=== PATIENT | female | born 1940 | race Caucasian/White ===

== ENCOUNTER 2022-08-16 23:42 | Emergency (ER) | payer MEDICARE, OTHER, SELFPAY ==
[2022-08-16 23:55] VITALS: BP 155/73; PULSE 81; RESP 18; TEMP 36.1; O2SAT 97; BMI 25.1
[2022-08-17] VITALS: BP 156/75; PULSE 78; RESP 18; O2SAT 97
[2022-08-17 00:30] VITALS: BP 155/76; PULSE 82; RESP 18; O2SAT 98
--- NOTE | 2022-08-17 00:50 | ED_ITS ---
HPI - Arrhythmia/Palpitations General Chief Complaint: Arrhythmia/Palpitations Stated Complaint: Chest Pain Time Seen by Provider: 08/17/22 00:40 History of Present Illness HPI narrative: 81-year-old woman presenting to the emergency department with her with concern of rapid heart rate. She had been resting in bed to go to sleep when her heart started racing. She had been on her left side which is her customary sleeping position. She tried other positions and this could not get comfortable. Went to the bathroom it was still racing ultimately called for help. She was never really short of breath she did not have any abdominal pain or nausea. No diaphoresis. No chest pain. Things seemed to settle down at this point. About 18 months ago had episodes of blacking out and presented to the ER/hospital at which point was hospitalized for 3 days. She was noted to have an unspecified what sounds like tachyarrhythmia. Cardiac angiography was done and was stented in an artery that was 70% occluded. She denies a history of heart failure or history of myocardial infarction. Was on what sounds like some sort of a rate control limited medication for a time. Follow up with EP/Cardiology in ultimately was discontinued from this medication. Has been well since. When she had this initial episode 18 months ago she thought maybe was related to a probable with anesthesia. She just had a procedure done requiring both general and of block on the left arm. She feels that that block may have been related somehow. Is in the area for a believe grandson's wedding. They were at rehearsal dinner this last evening Ms. Rincon does not smoke or drink alcohol. Past medical presented by patient Status post hysterectomy, bladder sling, cholecystectomy, bilateral cataract extraction lens reimplantation, esophageal dilatation times for, lower dental implants, cardiac stenting, hiatal hernia with reflux repair-repositioning stomach, lumbar diskectomy at L4-5, ablation of right lower back nerve root, partial corneal transplant, thumb reconstruction, spinal cord stimulator implant History of torn cartilage in the left knee, right foot neuroma, cardiovascular disease/coronary artery disease history of Clostridium difficile, osteoarthritis, osteoporosis Related Data Home Medications Medication Instructions Recorded Confirmed Tylenol Arthritis 08/17/22 aspirin 81 mg tablet,delayed 81 mg PO DAILY 08/17/22 08/17/22 release (Adult Aspirin Regimen) estradiol 0.5 mg tablet 0.5 mg PO DAILY 08/17/22 08/17/22 levothyroxine 25 mcg tablet 25 mcg PO DAILY 08/17/22 08/17/22 pantoprazole 40 mg tablet,delayed 40 mg PO BID 08/17/22 08/17/22 release rosuvastatin 20 mg tablet (Crestor) 20 mg PO DAILY 08/17/22 08/17/22 tramadol 50 mg tablet 50 mg PO Q4-6H PRN 08/17/22 08/17/22 Allergies Allergy/AdvReac Type Severity Reaction Status Date / Time No Known Drug Allergies Allergy Verified 08/17/22 00:00 [facility] Social History Smoking Status: Never smoker How often do you have a drink containing alcohol: never AUDIT-C Alcohol total score: 0 Non-prescribed substance use: denies use Exam Narrative: Exam Narrative: Very pleasant. NAD. Quite alert. Cranial nerves 2-12 intact On monitor occasional PVC, rare. Is breathing easily. Lungs are clear. Intermittent small cough. No stridor Cardiovascular regular rate and rhythm. No murmur rub or gallop is identified. No JVD. Neck is supple. Abdomen is soft nontender Oropharynx with upper denture plate. Moving all extremities without difficulty. No extremity edema. Const: Vital Signs, click to edit/add: Vital Signs - 24 hr 08/16/22 23:55 08/17/22 00:00 08/17/22 00:30 Temperature 97.0 F L Pulse Rate [Apical ] 81 78 82 Respiratory Rate 18 18 18 Blood Pressure [Le ft Upper Arm] 155/73 H 156/75 H 155/76 H Pulse Oximetry 97 97 98 Oxygen Delivery Me thod Room Air 08/17/22 01:00 08/17/22 01:30 08/17/22 02:00 Temperature Pulse Rate [Apical ] 72 78 75 Respiratory Rate 18 18 18 Blood Pressure [Le ft Upper Arm] 136/73 148/72 H 147/63 H Pulse Oximetry 99 99 98 Oxygen Delivery Me thod Documenting provider has reviewed patient's vital signs: yes Course Course Hospital Course: Initiated on normal saline IV. Monitored on policy change clerks supervisor. Reevaluation(s) Reevaluation #1: Well during time in the emergency depart without further event. Vital Signs Vital signs: Initial Vital Signs Temperature 97.0 F L 08/16/22 23:55 Temperature Source Temporal Artery Scan 08/16/22 23:55 Pulse Rate 81 09/23/22 23:55 Respiratory Rate 18 08/16/22 23:55 Blood Pressure 155/73 H 08/16/22 23:55 Blood Pressure Mean 100 08/16/22 23:55 Blood Pressure Position Supine 08/16/22 23:55 Pulse Oximetry 97 08/16/22 23:55 Oxygen Delivery Method 08/16/22 23:55 Vital Signs Temperature 97.0 F L 08/16/22 23:55 Pulse Rate 81 08/16/22 23:55 Respiratory Rate 18 08/16/22 23:55 Blood Pressure 155/73 H 08/16/22 23:55 Pulse Oximetry 97 08/16/22 23:55 Oxygen Delivery Method 08/16/22 23:55 Temperature 97.0 F L 08/16/22 23:55 Pulse Rate 75 08/17/22 02:00 Respiratory Rate 18 08/17/22 02:00 Blood Pressure 147/63 H 08/17/22 02:00 Pulse Oximetry 98 08/17/22 02:00 Oxygen Delivery Method 08/16/22 23:55 MDM - Arrhythmia/Palpitations MDM Narrative Medical decision making narrative: Given other significant recent history of think it is reasonable to monitor for a time check labs. Hydrate. Medical Records Attestation: I reviewed the patient's medical records. Lab Data Attestation: I reviewed the patient's lab results. Labs: Lab Results 08/17/22 08/17/22 08/17/22 Range/Units 00:59 00:59 00:59 WBC 8.87 (4.50-11.00) K/uL RBC 3.82 L (4.00-5.20) m/uL Hgb 12.5 (12.0-16.0) gm/dL Hct 37.0 (33.0-51.0) % MCV 97 (80-100) fL MCH 33 (26-34) pg MCHC 34 (32-36) gm/dL RDW Coeff of [place] 13.2 (11.5-15.5) % Plt Count 222 (140-440) K/uL Neut % (Auto) 53.2 (42.0-72.0) % Lymph % (Auto) 33.3 (20-44) % [place] % (Auto) 7.9 (0.0-11.0) % Eos % (Auto) 5.1 (0.0-7.0) % Baso % (Auto) 0.3 (0.0-3.0) % Neut # (Auto) 4.72 (1.7-7.0) K/uL Lymph # (Auto) 2.95 H (0.90-2.90) K/uL [place] # (Auto) 0.70 (0.00-0.90) K/UL Eos # (Auto) 0.45 (0.00-0.50) K/uL Baso # (Auto) 0.03 (0.00-0.30) K/uL Abs Immat Gran (auto) 0.02 (0.00-0.30) K/uL Sodium 138 (135-149) mmol/L Potassium 4.1 (3.6-5.1) mmol/L Chloride 107 (96-114) mmol/L Carbon Dioxide 22 (20-32) mmol/L BUN 18 (7-30) mg/dL Creatinine 0.8 (0.5-1.5) mg/dL Estimated Creat Clear 33.86 Estimated GFR 74 ml/min Glucose 108 (60-115) mg/dL Calcium 8.9 (8.4-10.6) mg/dL Magnesium (1.5-2.6) mg/dL C-Reactive Protein < 0.5 L (0.5-1.0) mg/dL NT-Pro-B Natriuret Pep (0-450) PG/mL Urine Color Yellow (Yellow) Urine Appearance Clear (Clear) Urine pH 5.5 (5.0-8.5) Ur Specific [place] <= 1.005 (1.000-1.030) Urine Protein Negative (Negative) Urine Glucose (UA) Negative (Negative) Urine Ketones Negative (Negative) Urine Blood Trace-intact A (Negative) Urine Nitrite Negative (Negative) Urine Bilirubin Negative (Negative) Urine Urobilinogen 0.2 (0.2-1.0) Ur Leukocyte Esterase Negative (Negative) Urine RBC 2-5 A (0-2) Urine WBC 0-2 (0-5) Ur Squamous Epith Cells None (None-Few) Urine Bacteria None (None) 08/17/22 Range/Units 00:59 WBC (4.50-11.00) K/uL RBC (4.00-5.20) m/uL Hgb (12.0-16.0) gm/dL Hct (33.0-51.0) % MCV (80-100) fL MCH (26-34) pg MCHC (32-36) gm/dL RDW Coeff of Mahin (11.5-15.5) % Plt Count (140-440) K/uL Neut % (Auto) (42.0-72.0) % Lymph % (Auto) (20-44) % [place] % (Auto) (0.0-11.0) % Eos % (Auto) (0.0-7.0) % Baso % (Auto) (0.0-3.0) % Neut # (Auto) (1.7-7.0) K/uL Lymph # (Auto) (0.90-2.90) K/uL [place] # (Auto) (0.00-0.90) K/UL Eos # (Auto) (0.00-0.50) K/uL Baso # (Auto) (0.00-0.30) K/uL Abs Immat Gran (auto) (0.00-0.30) K/uL Sodium (135-149) mmol/L Potassium (3.6-5.1) mmol/L Chloride (96-114) mmol/L Carbon Dioxide (20-32) mmol/L BUN (7-30) mg/dL Creatinine (0.5-1.5) mg/dL Estimated Creat Clear Estimated GFR ml/min Glucose (60-115) mg/dL Calcium (8.4-10.6) mg/dL Magnesium 2.3 (1.5-2.6) mg/dL C-Reactive Protein (0.5-1.0) mg/dL NT-Pro-B Natriuret Pep 246 (0-450) PG/mL Urine Color (Yellow) Urine Appearance (Clear) Urine pH (5.0-8.5) Ur Specific [place] (1.000-1.030) Urine Protein (Negative) Urine Glucose (UA) (Negative) Urine Ketones (Negative) Urine Blood (Negative) Urine Nitrite (Negative) Urine Bilirubin (Negative) Urine Urobilinogen (0.2-1.0) Ur Leukocyte Esterase (Negative) Urine RBC (0-2) Urine WBC (0-5) Ur Squamous Epith Cells (None-Few) Urine Bacteria (None) ECG Data Attestation: I personally reviewed and interpreted this ECG as follows: (Normal sinus rate of 80. No ischemic changes. Though looks to be showing a little widening of QRS; no prior for comparison) Discharge Plan Discharge Clinical Impression: Palpitations Patient Disposition: Home w/ Parent or Adult Condition: Improved Additional Instructions: Focus on hydration. Return for persistent tachycardia or lightheadedness or certainly any syncopal event, chest pain, shortness of breath. Please enjoy the wedding. Prescriptions: No Action levothyroxine 25 mcg tablet 25 mcg PO DAILY rosuvastatin [Crestor] 20 mg tablet 20 mg PO DAILY estradiol 0.5 mg tablet 0.5 mg PO DAILY Rx Instructions: off 5 days; repeat cycle pantoprazole 40 mg tablet,delayed release (DR/EC) 40 mg PO BID tramadol 50 mg tablet 50 mg PO Q4-6H PRN aspirin [Adult Aspirin Regimen] 81 mg tablet,delayed release (DR/EC) 81 mg PO DAILY Tylenol Arthritis Follow Up/Referrals: Provider,Not a Local [Primary Care Provider] - Stand Alone Forms: [employer] Info Instructions
[2022-08-17 01:00] VITALS: BP 136/73; PULSE 72; RESP 18; O2SAT 99
[2022-08-17] MEDS: 0.9 % SODIUM CHLORIDE 1000 ml 1,000 ML IV (01:00)
[2022-08-17 01:30] VITALS: BP 148/72; PULSE 78; RESP 18; O2SAT 99
[2022-08-17 01:33] LABS: Basophils Absolute Auto 0.03 K/uL (0.00-0.30); Basophils Percent Auto 0.3 % (0.0-3.0); Eosinophils Absolute Auto 0.45 K/uL (0.00-0.50); Eosinophils Percent Auto 5.1 % (0.0-7.0); Hemoglobin* 12.5 gm/dL (12.0-16.0); Immature Granulocytes Abs Auto 0.02 K/uL (0.00-0.30); Lymphocytes Absolute Auto 2.95 K/uL (0.90-2.90); Lymphocytes Percent Auto 33.3 % (20-44); Mean Corpuscular HGB Conc 34 gm/dL (32-36); Mean Corpuscular Hemoglobin 33 pg (26-34); Mean Corpuscular Volume 97 fL (80-100); Monocytes Percent Auto 7.9 % (0.0-11.0); Neutrophils Absolute Auto 4.72 K/uL (1.7-7.0); Neutrophils Percent Auto 53.2 % (42.0-72.0); Platelet Count* 222 K/uL (140-440); RDW Coefficient of Variation % 13.2 % (11.5-15.5); Red Blood Count 3.82 m/uL (4.00-5.20); White Blood Count* 8.87 K/uL (4.50-11.00)
[2022-08-17 01:39] LABS: Slide Review Reflex No
[2022-08-17 01:49] LABS: Magnesium* 2.3 mg/dL (1.5-2.6)
[2022-08-17 01:57] LABS: Chloride* 107 mmol/L (96-114); Sodium* 138 mmol/L (135-149)
[2022-08-17 01:58] LABS: NT Pro B Type NatriureticPept* 246 PG/mL (0-450); Potassium* 4.1 mmol/L (3.6-5.1)
[2022-08-17 02:00] VITALS: BP 147/63; PULSE 75; RESP 18; O2SAT 98
[2022-08-17 02:00] LABS: Creatinine* 0.8 mg/dL (0.5-1.5); Est. Creatinine Clearance* 33.86; Estimated Glomerular Filt Rate 74 ml/min
[2022-08-17 02:01] LABS: Blood Urea Nitrogen* 18 mg/dL (7-30); Calcium* 8.9 mg/dL (8.4-10.6); Carbon Dioxide* 22 mmol/L (20-32); Glucose* 108 mg/dL (60-115)
[2022-08-17 02:05] LABS: C Reactive Protein* < 0.5 mg/dL (0.5-1.0)
[2022-08-17 02:45] LABS: Appearance Urine Clear (Clear); Bilirubin Urine Negative (Negative); Blood Urine Trace-intact (Negative); Color Urine Yellow (Yellow); Glucose Urine Negative (Negative); Ketones Urine Negative (Negative); Leukocyte Esterase Urine Negative (Negative); Nitrite Urine Negative (Negative); Protein Urine Negative (Negative); Specific Gravity Urine <= 1.005 (1.000-1.030); Urobilinogen Urine 0.2 (0.2-1.0); pH Urine 5.5 (5.0-8.5)
[2022-08-17 02:52] LABS: WBC Urine 0-2 (0-5)
== END 2022-08-17 02:42 | disposition home or self-care (01) ==
PROVIDERS: Emergency Provider Family Medicine
DX: R00.2 Palpitations (principal)
CPT/HCPCS: 36415; 80048; 81001; 83735; 83880; 85025; 86140; 93005; 94761; 99284; J7030

== ENCOUNTER 2023-08-18 22:29 | Emergency (ER) | payer MEDICARE, OTHER, SELFPAY ==
[2023-08-18 22:51] VITALS: BP 205/81; PULSE 66; RESP 16; TEMP 36.7; O2SAT 98; BMI 24.9
--- NOTE | 2023-08-18 23:26 | CRLHL7_ITS ---
For Patients: As a result of the Century Cures Act, medical imaging exams and procedure reports are released immediately into your electronic medical record. You may view this report before your referring provider. If you have questions, please contact your health care provider. INDICATION: Headache, hypertension. TECHNIQUE: CT head without contrast. Permanently recorded images are archived. COMPARISON: None. FINDINGS: CSF spaces: Within normal limits for age. Brain parenchyma and extra-axial spaces: Areas of mild hypoattenuation within the bilateral periventricular white matter, consistent with chronic small vessel ischemic disease. The meyer-white differentiation is normal. No sign of mass, hemorrhage, or midline shift. No extra-axial fluid collection. Skull base and calvarium: The visualized paranasal sinuses demonstrate no acute or significant findings. The mastoid air cells are clear. The visualized orbits are grossly unremarkable. No skull fractures. Atherosclerotic calcification of the carotid siphons. Degenerative changes the left temporomandibular joint. IMPRESSION: No evidence of an acute intracranial abnormality. Please note that all CT scans at this facility use dose modulation, iterative reconstruction, and/or weight-based dosing when appropriate to reduce radiation dose to as low as reasonably achievable. Dictated by Harsh Mills MD @ 08/19/2023 12:42:29 AM (Electronically Signed)
[2023-08-18 23:30] VITALS: O2SAT 99
[2023-08-18] MEDS: LORazepam 2 MG/ML inj 0.5 MG IVP (23:40)
[2023-08-18 23:52] VITALS: BP 176/71; PULSE 56; RESP 16; O2SAT 97
[2023-08-18 23:54] LABS: Basophils Absolute Auto 0.01 K/uL (0.00-0.30); Basophils Percent Auto 0.1 % (0.0-3.0); Eosinophils Absolute Auto 0.01 K/uL (0.00-0.50); Eosinophils Percent Auto 0.1 % (0.0-7.0); Hematocrit 41.5 % (33.0-51.0); Hemoglobin* 13.6 gm/dL (12.0-16.0); Immature Granulocytes Abs Auto 0.02 K/uL (0.00-0.30); Immature Granulocytes Pct Auto 0.2 %; Lymphocytes Absolute Auto 3.19 K/uL (0.90-2.90); Lymphocytes Percent Auto 30.6 % (20-44); Mean Corpuscular HGB Conc 33 gm/dL (32-36); Mean Corpuscular Hemoglobin 32 pg (26-34); Mean Corpuscular Volume 98 fL (80-100); Monocytes Percent Auto 6.3 % (0.0-11.0); Neutrophils Absolute Auto 6.52 K/uL (1.7-7.0); Neutrophils Percent Auto 62.7 % (42.0-72.0); Platelet Count* 251 K/uL (140-440); Red Blood Count 4.23 m/uL (4.00-5.20); White Blood Count* 10.41 K/uL (4.50-11.00)
[2023-08-18 23:55] LABS: Appearance Urine Cloudy (Clear); Bilirubin Urine Negative (Negative); Blood Urine 1+ (Negative); Color Urine Yellow (Yellow); Glucose Urine Negative (Negative); Ketones Urine Negative (Negative); Leukocyte Esterase Urine 3+ (Negative); Nitrite Urine Negative (Negative); Protein Urine Negative (Negative); Urobilinogen Urine 0.2 (0.2-1.0)
[2023-08-18 23:57] LABS: Slide Review Reflex No
--- NOTE | 2023-08-19 | CRLHL7_ITS ---
For Patients: As a result of the Century Cures Act, medical imaging exams and procedure reports are released immediately into your electronic medical record. You may view this report before your referring provider. If you have questions, please contact your health care provider. INDICATION: Headache, hypertension. TECHNIQUE: Chest 2 views. COMPARISON: None. FINDINGS: Cardiovascular and mediastinum: Heart size and vasculature are normal in caliber and appearance. Lungs and pleural spaces: Lungs are clear. No sign of infiltrate or mass. No sign of pleural effusion. No pneumothorax. Bones and soft tissues: No significant findings. IMPRESSION: No acute or significant findings. Dictated by Prem Perez MD @ 08/19/2023 12:27:45 AM (Electronically Signed)
[2023-08-19 00:08] LABS: Chloride* 108 mmol/L (96-114); Potassium* 3.6 mmol/L (3.6-5.1); Sodium* 141 mmol/L (135-149)
[2023-08-19 00:10] LABS: Creatinine* 1.3 mg/dL (0.5-1.5); Est. Creatinine Clearance* 25.61; Estimated Glomerular Filt Rate 41 ml/min
[2023-08-19 00:11] LABS: Anion Gap 11 mEq/L (7-15); Blood Urea Nitrogen* 21 mg/dL (7-30); Calcium* 9.4 mg/dL (8.4-10.6); Carbon Dioxide* 22 mmol/L (20-32); Glucose* 100 mg/dL (60-115)
[2023-08-19 00:13] LABS: Ethanol* < 0.01 % (0.01-0.03)
[2023-08-19 00:19] LABS: WBC Urine 25-50 (0-5)
[2023-08-19 00:20] LABS: Amphetamine Screen Urine Negative (Negative); Bacteria Urine Few; Benzodiazepines Screen Urine Negative (Negative); Cannabinoid Screen Urine Negative (Negative); Cocaine Screen Urine Negative (Negative); Methamphetamines Screen Urine Negative (Negative); Opiate Screen Urine Negative (Negative); Phencyclidine Screen Urine Negative (Negative); Squamous Epithelial Cell Urine Few (None-Few)
[2023-08-19 00:21] LABS: Barbiturate Screen Urine Negative (Negative); Methadone Screen Urine Negative (Negative); Oxycodone Screen Urine Negative (Negative)
[2023-08-19 00:21] LABS: NT Pro B Type NatriureticPept* 453 pg/mL
[2023-08-19 00:33] VITALS: BP 176/70; PULSE 55; O2SAT 99
--- NOTE | 2023-08-19 00:39 | ED_ITS ---
HPI - General Adult General Date Seen: 08/19/23 Chief complaint: Hypertension Stated complaint: High Blood pressure Time Seen by Provider: 08/18/23 23:22 Source: patient and family Mode of arrival: ambulatory Limitations: no limitations History of Present Illness HPI narrative: Patient is a very nice 82-year-old female who presents here from [place], for evaluation of of blood pressure elevation. Seven days ago she was placed on doxycycline and also prednisone for bronchitis by her compressor technician. Since then her blood pressures have increased. Sheet doubled her dose of her losartan today to account for this but they still were high, she has a mild headache she says, but does not think this is from the high blood pressure she denies any shortness of breath any diplopia double vision or vision changes she has no chest pain also with this. She does have a history of atrial fibrillation which sounds to be paroxysmal, and a history of a previous cardiac stent. She has not missed any of her medication. Denies any nausea vomiting, fevers chills or sweats, she is just coming off a case of COVID 2 weeks ago, she did not receive any Paxlovid for this. Associated symptoms: denies other symptoms Treatments prior to arrival: none Related Data Home Medications Medication Instructions Recorded Confirmed estradiol 0.5 mg tablet 0.5 mg PO DAILY 08/17/22 08/18/23 levothyroxine 25 mcg tablet 25 mcg PO DAILY 08/17/22 08/18/23 pantoprazole 40 mg tablet,delayed 40 mg PO BID 08/17/22 08/18/23 release rosuvastatin 20 mg tablet (Crestor) 20 mg PO DAILY 08/17/22 08/18/23 tramadol 50 mg tablet 50 mg PO Q4-6H PRN 08/17/22 08/18/23 amiodarone 200 mg tablet 200 mg PO DAILY 08/18/23 08/18/23 apixaban 2.5 mg tablet (Eliquis) 2.5 mg PO DAILY 08/18/23 08/18/23 denosumab 60 mg/mL subcutaneous 60 mg subcut [id number] 08/18/23 08/18/23 syringe (Prolia) losartan 25 mg tablet 25 mg PO BID 08/18/23 08/18/23 Allergies Allergy/AdvReac Type Severity Reaction Status Date / Time No Known Drug Allergies Allergy Verified 08/18/23 23:08 Review of Systems Status of ROS: Reports: 10 or more systems reviewed and unremarkable except as noted in History and below [facility] Social History Smoking Status: Never smoker How often do you have a drink containing alcohol: never AUDIT-C Alcohol total score: 0 Non-prescribed substance use: denies use Exam Narrative: Exam Narrative: On examination she is in no apparent distress she is pleasant and alert. Pupils equal round reactive to light, fundi appear normal there is no nystagmus or TMs are normal bilaterally her neck is supple, carotid upstrokes are equal bilaterally in JVP is flat her chest is good air entry bilateral with no wheezing crackles noted, heart sounds no clicks murmurs or gallops and she a ppears to be regular rhythm. Abdomen is soft there is no guarding, no organomegaly no tenderness to palpation no CVA tenderness there is no epigastric or flank bruits noted. No edema of her lower extremities, she moves all extremities independently well and walks normally. Const: Vital Signs, click to edit/add: Vital Signs - 24 hr 08/18/23 22:51 08/18/23 23:52 08/19/23 00:33 Temperature 98.1 F Pulse Rate 56 L 55 L Pulse Rate [Left P ulse Oximeter] 66 Respiratory Rate 16 16 Blood Pressure 176/71 H 176/70 H Blood Pressure [Ri ght Upper Arm] 205/81 H Pulse Oximetry 98 97 99 Oxygen Delivery Me thod Room Air 08/19/23 00:43 08/19/23 00:52 Temperature 98.5 F Pulse Rate 53 L Pulse Rate [Left P ulse Oximeter] 68 Respiratory Rate 16 16 Blood Pressure 164/63 H Blood Pressure [Ri ght Upper Arm] 165/74 H Pulse Oximetry 98 98 Oxygen Delivery Me thod Room Air Documenting provider has reviewed patient's vital signs: yes Course Course ED Course: I went talk with the patient, her blood pressures come down nicely while she has been here in the department she feels a lot better. Her CT of her head along with her chest x-ray is normal her EKG is reassuring along with the laboratory test her urinalysis does show that she looks like she has a UTI, she tells me that she does have a history of this chronically. They usually give her Bactrim in fact she brings a prescription from [place] for this that she will take at home. I think it is reasonable to send her home at this point have her stop the doxy in the prednisone and then also go back to the normal dosage of her losartan. I would like her to return here if she has any further worsening which we have gone over in detail with her. Vital Signs Vital signs: Initial Vital Signs Temperature 98.1 F 08/18/23 22:51 Temperature Source Temporal Artery Scan 08/18/23 22:51 Pulse Rate 66 08/18/23 22:51 Respiratory Rate 16 08/18/23 22:51 Blood Pressure 205/81 H 08/18/23 22:51 Blood Pressure Mean 122 H 08/18/23 22:51 Blood Pressure Position Sitting 08/18/23 22:51 Pulse Oximetry 98 08/18/23 22:51 Oxygen Delivery Method Room Air 08/18/23 22:51 Vital Signs Temperature 98.1 F 08/18/23 22:51 Pulse Rate 66 08/18/23 22:51 Respiratory Rate 16 08/18/23 22:51 Blood Pressure 205/81 H 08/18/23 22:51 Pulse Oximetry 98 08/18/23 22:51 Oxygen Delivery Method Room Air 08/18/23 22:51 Temperature 98.5 F 08/19/23 00:52 Pulse Rate 68 08/19/23 00:52 Respiratory Rate 16 08/19/23 00:52 Blood Pressure 165/74 H 08/19/23 00:52 Pulse Oximetry 98 08/19/23 00:52 Oxygen Delivery Method Room Air 08/19/23 00:52 Medical Decision Making [facility] Narrative Medical decision making narrative: Differential diagnosis is long here, with this hypertensive urgency situation. Although I suspect a lot of this is due to the fact that she is taking the doxycycline in the prednisone. She denies any significant chest pain we will check her troponin to ensure this is in her other vital signs are all excellent. I will do is head CT and chest x-ray to ensure that there is nothing significant going on here along with her blood test. We will give her a little Ativan as she says seem anxious. Already her blood pressure has come down nicely. Lab Data Lab results reviewed: Yes I reviewed the patient's lab results Labs: Lab Results 08/18/23 08/18/23 Range/Units 23:34 23:35 WBC 10.41 (4.50-11.00) K/uL RBC 4.23 (4.00-5.20) m/uL Hgb 13.6 (12.0-16.0) gm/dL Hct 41.5 (33.0-51.0) % MCV 98 (80-100) fL MCH 32 (26-34) pg MCHC 33 (32-36) gm/dL RDW Coeff of Mahin 14.0 (11.5-15.5) % Plt Count 251 (140-440) K/uL Neut % (Auto) 62.7 (42.0-72.0) % Lymph % (Auto) 30.6 (20-44) % [place] % (Auto) 6.3 (0.0-11.0) % Eos % (Auto) 0.1 (0.0-7.0) % Baso % (Auto) 0.1 (0.0-3.0) % Neut # (Auto) 6.52 (1.7-7.0) K/uL Lymph # (Auto) 3.19 H (0.90-2.90) K/uL [place] # (Auto) 0.70 (0.00-0.90) K/UL Eos # (Auto) 0.01 (0.00-0.50) K/uL Baso # (Auto) 0.01 (0.00-0.30) K/uL Abs Immat Gran (auto) 0.02 (0.00-0.30) K/uL Imm/Tot Granulo (auto) 0.2 % Sodium 141 (135-149) mmol/L Potassium 3.6 (3.6-5.1) mmol/L Chloride 108 (96-114) mmol/L Carbon Dioxide 22 (20-32) mmol/L Anion Gap 11 (7-15) mEq/L BUN 21 (7-30) mg/dL Creatinine 1.3 (0.5-1.5) mg/dL Estimated Creat Clear 25.61 Estimated GFR 41 ml/min Glucose 100 (60-115) mg/dL Calcium 9.4 (8.4-10.6) mg/dL NT-Pro-B Natriuret Pep 453 pg/mL Urine Color Yellow (Yellow) Urine Appearance Cloudy A (Clear) Urine pH 6.0 (5.0-8.5) Ur Specific [place] 1.010 (1.000-1.030) Urine Protein Negative (Negative) Urine Glucose (UA) Negative (Negative) Urine Ketones Negative (Negative) Urine Blood 1+ A (Negative) Urine Nitrite Negative (Negative) Urine Bilirubin Negative (Negative) Urine Urobilinogen 0.2 (0.2-1.0) Ur Leukocyte Esterase 3+ A (Negative) Urine RBC 2-5 A (0-2) Urine WBC 25-50 A (0-5) Ur Squamous Epith Cells Few (None-Few) Urine Bacteria Few A (None) Urine Opiates Screen Negative (Negative) Ur Oxycodone Screen Negative (Negative) Urine Methadone Screen Negative (Negative) Ur Propoxyphene Screen Negative (Negative) Ur Barbiturates Screen Negative (Negative) Ur Phencyclidine Scrn Negative (Negative) Ur Amphetamines Screen Negative (Negative) U Methamphetamines Scrn Negative (Negative) U Benzodiazepines Scrn Negative (Negative) Urine Cocaine Screen Negative (Negative) U Marijuana (THC) Screen Negative (Negative) Ur Drug Screen Comment See Note Ethyl Alcohol < 0.01 L (0.01-0.03) % POC Troponin I 0.00 L (0.01-0.04) ng/ml Imaging Data CT scan - chest: Attestation: I have reviewed the pertinent imaging results. My impression: No acute findings of her chest x-ray or head CT. ECG Data Attestation: I personally reviewed and interpreted this ECG as follows: Prior ECG tracings: not available for review Interpretation: EKG shows mild sinus bradycardia at 58 with occasional PVCs. Mild left ventricular hypertrophy also. Discharge Plan Discharge Clinical Impression: Urinary tract infection, Elevated blood pressure reading, Anxiety Patient Disposition: Home w/ Parent or Adult Condition: Improved Instructions: Anxiety (ED), Urinary Tract Infection in Older Adults (ED) Additional Instructions: We are going to let her go home, you can stop the doxycycline in the prednisone at this point. Would recommend that she take her Bactrim that you have with U for the UTI. Return here if headaches double vision chest pain or other issues occur. I hope that the rest here trip is uneventful. I also would suggest that you take your blood pressure medication as previously prescribed. Rest your blood tests were all excellent. Activity Level: Light activity Prescriptions: No Action amiodarone 200 mg tablet 200 mg PO DAILY Eliquis 2.5 mg tablet 2.5 mg PO DAILY Patient Comments: take two tabs daily losartan 25 mg tablet 25 mg PO BID Prolia 60 mg/mL syringe 60 mg subcut [id number] levothyroxine 25 mcg tablet 25 mcg PO DAILY rosuvastatin [Crestor] 20 mg tablet 20 mg PO DAILY estradiol 0.5 mg tablet 0.5 mg PO DAILY Rx Instructions: off 5 days; repeat cycle pantoprazole 40 mg tablet,delayed release (DR/EC) 40 mg PO BID tramadol 50 mg tablet 50 mg PO Q4-6H PRN Follow Up/Referrals: Provider,Not a Local [Primary Care Provider] - Stand Alone Forms: [employer] Info Instructions
[2023-08-19 00:43] VITALS: BP 164/63; PULSE 53; RESP 16; O2SAT 98
[2023-08-19 00:52] VITALS: BP 165/74; PULSE 68; RESP 16; TEMP 36.9; O2SAT 98
[2023-08-19 01:18] VITALS: BP 165/74; PULSE 68; RESP 16; TEMP 36.9
== END 2023-08-19 01:18 | disposition home or self-care (01) ==
PROVIDERS: Emergency Provider Family Medicine
DX: N39.0 Urinary tract infection, site not specified (principal); R03.0 Elevated blood-pressure reading, without diagnosis of hypertension; F41.9 Anxiety disorder, unspecified
CPT/HCPCS: 36415; 70450; 71046; 80048; 80306; 81001; 82077; 83880; 84484; 85025; 87086; 87186; 93005; 94761; 96374; 99284; 99285; J2060